=== PATIENT | female | born 1980 | race Caucasian/White ===

== ENCOUNTER 2023-07-08 14:32 | Outpatient (OUT) | payer BC, SELFPAY ==
--- NOTE | 2023-07-08 14:38 | MM_ITS ---
Patient: RICHARD ACEVEDO Exam Date: 07/08/2023 : 1980 Gender:F Ordering : DR Ancelmo Lopez . Admission #: [id number] Family : DR Martha Haley M.D. Order #: [id number] CLICK HERE TO VIEW EXAM RADIOLOGY REPORT PROCEDURE: MM TOMOSYNTHESIS SCREENING BI COMPARISON: None. INDICATIONS: Screening Calculator Name NCI Breast Cancer Risk Assessment Tool 5 Year Breast Cancer Risk 0.60% Lifetime Breast Cancer Risk 8.00% Personal Breast Cancer No Personal Ovarian Cancer No Treatments None Family Cancers Aunt-maternal with ovarian cancer at age 60; Brother with testicular cancer at age ~37. LOCATION: [facility] BREAST COMPOSITION: Heterogeneously dense,which may obscure small masses. FINDINGS: DIAGNOSTIC CATEGORY 2--BENIGN FINDING. NO CHANGE FROM COMPARISON. Scattered benign-appearing lymph nodes are present. RIGHT BREAST: No significant suspicious finding. LEFT BREAST: No significant suspicious finding. RECOMMENDATIONS: ROUTINE MAMMOGRAM AND CLINICAL EVALUATION IN 12 MONTHS. PLEASE NOTE: A NORMAL MAMMOGRAM DOES NOT EXCLUDE THE POSSIBILITY OF BREAST CANCER. A CLINICALLY SUSPICIOUS PALPABLE LUMP SHOULD BE BIOPSIED. Dictated by: Armando Briceno MD on 07/08/2023 at 15:36 Approved by: Armando Briceno MD on 07/08/2023 at 15:38
== END 2023-07-08 14:33 | disposition home or self-care (01) ==
LOC: MAMMO 14:35
PROVIDERS: PCP Family Medicine; Visit Provider Obstetrics & Gynecology
DX: Z12.31 Encounter for screening mammogram for malignant neoplasm of breast (principal); Z80.41 Family history of malignant neoplasm of ovary; Z80.43 Family history of malignant neoplasm of testis
CPT/HCPCS: 77063; 77067

== ENCOUNTER 2023-12-08 12:58 | Outpatient (OUT) | payer BC, SELFPAY ==
--- NOTE | 2023-12-08 13:01 | US_ITS ---
[address] [address] Patient Name: RICHARD ACEVEDO MRN: [id number] date: 1980 Sex: F Assigned Patient Location: US Current Patient Location: US Accession/Order Number: [id number] Exam Date: 12/08/2023 13:05 Report Date: 12/08/2023 15:07 At the request of: TREY WONG Procedure: US pelvis w/ transvaginal EXAMINATION: US pelvis w/ transvaginal HISTORY: right lower quadrant abdominal pain R10.31, pelvic pain COMPARISON: No relevant comparison available. TECHNIQUE: Transabdominal and/or transvaginal sonographic examination was performed as indicated by examination type. FINDINGS: UTERUS: Normal size and appearance. Incidental 7 mm nabothian cysts within cervix. Uterus size: 7.3 x 4.5 x 5.1 cm ENDOMETRIUM: 8 x 7 x 3 mm hypoechoic area within fundal endometrium without appreciable internal blood flow; possibly old blood products, or less likely polyp. Endometrial thickness: 10 mm RIGHT OVARY: Prior oophorectomy LEFT OVARY: Contains a 1.6 cm benign-appearing cyst or follicle. Duplex Doppler demonstrates normal waveform and flow; resistive index 0.7. Ovary size: 3.7 x 1.8 x 2.4 cm CUL-DE-SAC: Small moderate free fluid, likely physiologic. BLADDER: Unremarkable. OTHER: None. US/US pelvis w/ transvaginal IMPRESSION: 1. No acute or specific findings to account for patient's symptoms. 2. Additional incidental findings described above. Electronically authenticated by: YASMEEN GUZMAN Date: 12/08/2023 15:07
--- OUTSIDE RECORDS SUMMARY | 2023-12-08 13:12 | XMS_ITS | CCD ---
Author Organization [facility] Care Team Providers Care Compliance Engineer Products Name Role Phone RUPERT BROOKS Admitting Unavailable RUPERT BROOKS Attending Unavailable DR NORAH BURRELL Primary Care Unavailable RUPERT BROOKS Consulting Unavailable RAMAN . TRAN Admitting Unavailable RAMAN ., TRAN Attending Unavailable DR NORAH BURRELL Primary Care Unavailable RAMAN .TRAN Consulting Unavailable Allergies Allergy Classification Reported Allergen(s) Allergy Type Date of Onset Reaction(s) Facility (1 source) Penicillins Drug allergy (disorder) 07-21-2013 [facility] Repository Problems Active Problems Problem Classification Problem Date Documented Date Episodic/Chronic Immunizations and screening for infectious disease (1 source) Encounter for screening for human papillomavirus (HPV); Translations: [ENC SCREENING HUMAN PAPILLOMAVIRUS] Onset: 01-18-2023 Episodic Other screening for suspected conditions (not mental disorders or infectious disease) (4 sources) Encounter for screening for malignant neoplasm of cervix; Translations: [ENC SCREENING MALIG NEOPLASM CERV] Onset: 01-15-2023 Episodic Unclassified (2 sources) CONTACT W/AND (SUSP) EXPOS COVID-19; Translations: [CONTACT W/AND (SUSP) EXPOS COVID-19] Onset: 06-06-2022 Viral infection (1 source) COVID-19; Translations: [COVID-19] Onset: 06-06-2022 Past or Other Problems Problem Classification Problem Date Documented Da te Episodic/Chronic Unclassified (1 source) CONTACT W/AND (SUSP) EXPOS COVID-19; Translations: [CONTACT W/AND (SUSP) EXPOS COVID-19] Onset: 06-04-2022 Results Test Name Value Interpretation Reference Range Facil ity Covid-19 PCR (CVDTBH)on 05-10 SARS-CoV-2 (COVID-19) RNA ANA+probe Ql (Unsp spec) Detected Critically abnormal NOT DETECTED [facility] Comment on above: Result Comment: This test is not yet geo roved or cleared by the [place] FDA. When there are no FDA-approved or cleared tests available, and other criteria are met, FDA can make tests available under an emergency access mechanism called an Emergency Use Authorization (EUA). The EUA for this test is supported by the [place] of Health and Human Service's declaration that circumstances exist to justify the emergency use of in vitro diagnostics for the detection and/or diagnosis of the virus that causes COVID-19. This EUA will remain in effect for the duration of the COVID-19 declaration justifying emergency of IVDs, unless it is terminated or revoked by the FDA (after which the test may no longer be used). Performed By: #### C [facility] #### [facility] [address] [place] [address] Dr. Rebeca Clay Encounters Encounter Date Encounter Type Care Provider Facility Start: 01-15-2023 End: 01-15-2023 ambulatory TRAN RAMAN . Facility: Start: 06-04-2022 End: 06-04-2022 ambulatory RUPERT BROOKS Facility:[facility] Payers Date Payer Category Payer Unknown [id number] 2019 Unknown [id number] 1980 Unknown [id number] 1980 Unknown [id number] Summary Purpose Family History No Family History Records Found Advance Directives No Advanced Directives Records Found Additional Source Comments INFORMATION SOURCE (unrecogn ized section and content) DATE CREATED AUTHOR 01/19/2023 [facility] FOR RECORDS PERTAINING TO PATIENTS WHO ARE OR HAVE BEEN ENROLLED IN A CHEMICAL DEPENDENCY/SUBSTANCEABUSE PROGRAM, SOME INFORMATION MAY BE OMITTED. This clinical summary was aggregated from multiple sources. Caution should be exercised in using it in the provision of clinical care. This summary normalizes information from multiple sources, and as a consequence, information in this document may materially change the coding, format and clinical context of patient data. In addition, data may be omitted in some cases. CLINICAL DECISIONS SHOULD BE BASED ON THE PRIMARY CLINICAL RECORDS. [facility]. provides no warranty or guarantee of the accuracy or completeness of information in this document.
== END 2023-12-08 12:59 | disposition home or self-care (01) ==
LOC: US 12:58
PROVIDERS: PCP Family Medicine; Visit Provider Obstetrics & Gynecology
DX: R10.31 Right lower quadrant pain (principal); R10.2 Pelvic and perineal pain
CPT/HCPCS: 76830; 76856

== ENCOUNTER 2024-04-06 10:46 | Outpatient (OUT) | payer BC, SELFPAY ==
--- OUTSIDE RECORDS SUMMARY | 2024-04-06 10:54 | XMS_ITS | CCD ---
Author Organization [facility] Care Team Providers Care Environmental Studies Faculty Member Name Role Phone RUPERT BROOKS Admitting Unavailable RUPERT BROOKS Attending Unavailable DR NORAH BURRELL Primary Care Unavailable RUPERT BROOKS Consulting Unavailable TRAN KOENIG Admitting Unavailable TRAN KOENIG Attending Unavailable DR NORAH BURRELL Primary Care Unavailable TRAN KOENIG Consulting Unavailable Allergies Allergy Classification Reported Allergen(s) Allergy Type Date of Onset Reaction(s) Facility (1 source) Penicillins Drug allergy (disorder) 07-21-2013 [facility] Repository Problems Active Problems Problem Classification Problem [...] spec) Detected Critically abnormal NOT DETECTED [facility] Comment on above: Result Comment: This test is not yet geo roved or cleared by the [place] FDA. When there are no FDA-approved or cleared tests available, and other criteria are met, FDA can make tests available under an emergency access mechanism called an Emergency Use Authorization (EUA). The EUA for this test is supported by the [place] and Human Service's declaration that [...] longer be used). Performed By: #### [facility] #### [facility] [address] [place] [address] Dr. Rebeca Clay Encounters Encounter Date Encounter Type Care Provider Facility Start: 01-15-2023 End: 01-15-2023 ambulatory TRAN CAMARGO . Facility: Start: 06-04-2022 End: 06-04-2022 ambulatory RUPERT TODD Facility:[facility] Payers Date Payer Category Payer Unknown [id number] 2019 Unknown [id number] 1980 Unknown [id number] 1980 Unknown [id number] Summary Purpose Family History No Family History Records Found Advance Directives No Advanced Directives Records Found Additional Source Comments INFORMATION SOURCE (unrecogn ized section and content) DATE CREATED AUTHOR 01/19/2023 [facility] FOR RECORDS PERTAINING TO PATIENTS WHO [...] BE BASED ON THE PRIMARY CLINICAL RECORDS. [facility] [email or web address] [facility]. provides no warranty or guarantee of the accuracy or completeness of information in this document.
[2024-04-06 11:14] LABS: Basophils Percent Auto 0.8 % (0.2-2.0); Eosinophils Absolute Auto 0.1 10^3/uL (0.0-0.7); Eosinophils Percent Auto 2.1 % (0.9-7.0); Hematocrit 40.1 % (36.0-48.0); Hemoglobin 13.1 g/dL (12.0-16.0); Immature Granulocytes Abs Auto 0.01 10^3/uL (0.00-0.03); Immature Granulocytes Pct Auto 0.2 % (0.0-0.5); Lymphocytes Absolute Auto 1.3 10^3/uL (1.2-3.8); Lymphocytes Percent Auto 23.9 % (20.5-60.0); Mean Corpuscular HGB Conc 32.7 g/dL (29.9-35.2); Mean Corpuscular Hemoglobin 30.3 pg (26.7-34.0); Mean Corpuscular Volume 92.6 fL (81.0-99.0); Mean Platelet Volume 9.2 fL (9.5-13.5); Monocytes Absolute Auto 0.4 10^3/uL (0.3-0.8); Monocytes Percent Auto 7.4 % (1.7-12.0); Neutrophils Absolute Auto 3.4 10^3/uL (1.4-6.5); Neutrophils Percent Auto 65.6 % (43.0-75.0); Platelet Count 285 10^3/uL (150-450); Red Blood Count 4.33 10^6/uL (4.20-5.40); Red Cell Distribution Width 12.6 % (11.0-15.0); White Blood Count 5.2 10^3/uL (4.0-11.0)
[2024-04-06 11:51] LABS: Estimated Average Glucose 103 mg/dL; Glycohemoglobin A1C 5.2 % (4.5-6.2)
[2024-04-06 12:15] LABS: Alanine Aminotransferase 16 U/L (14-59); Albumin Globulin Ratio 1.2; Albumin Level 3.8 g/dL (3.4-5.0); Alkaline Phosphatase 50 U/L (46-116); Anion Gap 10.8; Aspartate Amino Transferase 11 U/L (15-37); BUN Creatinine Ratio 14.6; Bilirubin Total 0.4 mg/dL (0.2-1.0); Calcium 8.9 mg/dL (8.5-10.1); Carbon Dioxide 25.1 mmol/L (21.0-32.0); Chloride 103 mmol/L (98-107); Chol HDL Ratio 2.9; Cholesterol 194 mg/dL (<=200); Estimated GFR (African America >60 (>=60); Estimated GFR (Non-African Ame >60 (>=60); Globulin 3.2 g/dL; Glucose 93 mg/dL (74-106); HDL Cholesterol 68 mg/dL (40-60); Potassium 3.9 mmol/L (3.5-5.1); Sodium 135 mmol/L (136-145); Thyroid Stimulating Hormone 0.962 uIU/mL (0.358-3.740); Triglycerides 78 mg/dL (<=150); VLDL CHOLESTEROL 15.6 mg/dL
== END 2024-04-06 10:47 | disposition home or self-care (01) ==
LOC: LAB 10:48
PROVIDERS: PCP Family Medicine; Visit Provider Family Medicine
DX: Z00.00 Encounter for general adult medical examination without abnormal findings (principal)
CPT/HCPCS: 36415; 80053; 80061; 83036; 84443; 85025